=== PATIENT | male | born 1945 | race Caucasian/White ===

== ENCOUNTER 2021-05-18 13:11 | Outpatient (CLI) | payer MEDICARE, BC | END 2021-05-18 13:12 | disposition home or self-care (01) | LOC: TBSIIMAG 13:11 | PROVIDERS: ATTEND Urology | DX: C64.2 Malignant neoplasm of left kidney, except renal pelvis (principal); R97.20 Elevated prostate specific antigen [PSA] | CPT/HCPCS: 72197; 82565 ==

== ENCOUNTER 2021-05-20 12:34 | Outpatient (CLI) | payer MEDICARE, BC | END 2021-05-20 12:35 | disposition home or self-care (01) | LOC: TBSIIMAG 12:34 | PROVIDERS: ATTEND Urology | DX: R97.20 Elevated prostate specific antigen [PSA] (principal); K86.89 Other specified diseases of pancreas | CPT/HCPCS: 74183 ==

== ENCOUNTER 2023-07-22 16:15 | Inpatient (IN) | payer MEDICARE, BC ==
[~2023-07-22 16:15] MED LIST: Iopamidol-370 76% 500 ML MDV (1 ML CHARGE) ONE
[2023-07-22 16:59] LABS: #Eosinphils 0.1 thou/uL (0.0-0.7); #Monocytes 0.5 thou/uL (0.11-0.59); %Basophils 0.2 % (0.0-1.0); %Eosinophils 1.5 % (0.0-10.0); %Lymphocytes 14.8 % (21.0-51.0); %Monocytes 8.8 % (0.0-10.0); %Neutrophils 74.3 % (42.0-75.0); Hemoglobin 15.6 g/dL (14.0-18.0); Mean Corpuscular HGB CONC 35.5 g/dL (32.0-36.0); Mean Corpuscular Hemoglobin 32.8 pg (27.0-31.0); Mean Corpuscular Volume 92.6 fl (78.0-98.0); Mean Platelet Volume 10.8 fL (7.4-10.4); Platelet Count 148 10x3/uL (130-400); RBC Distribution Width 12.3 % (11.5-14.5); Red Blood Cell (RBC) Count 4.75 mill/uL (4.70-6.10); White Blood Cell (WBC) Count 5.4 10x3/uL (4.8-10.8)
[2023-07-22 17:16] LABS: PTT 30.6 sec (22.9-36.1)
[2023-07-22] MEDS ORDERED: Labetalol HCl 100 MG/20 ML VIAL ONE ×2 (17:31→19:11)
[2023-07-22 18:14] LABS: ALT (SGPT) 33 U/L (8-55); AST (SGOT) 31 U/L (5-34); Albumin 4.2 g/dL (3.4-4.8); Alkaline Phosphatase 135 U/L (40-110); Anion Gap 10 mmol/L (10-20); BUN (Urea Nitrogen) 18 mg/dL (8.4-25.7); Bilirubin, Total 0.7 mg/dL (0.2-1.2); Calc. Creatinine Clearance 0 mL/min (70-130); Calcium 9.3 mg/dL (7.8-10.44); Carbon Dioxide 30 mmol/L (23-31); Chloride 100 mmol/L (98-107); Estimated GFR 53; Globulin 2.8 g/dL (2.4-3.5); Glucose 124 mg/dL (83-110); Sodium 137 mmol/L (136-145)
[2023-07-22 18:15] LABS: Troponin I 0.126 ng/mL (< 0.028)
[2023-07-22] MEDS ORDERED: Potassium Chloride 20 MEQ TAB ONE (18:53)
[2023-07-22] MEDS ORDERED: Aspirin Chewable 81 MG TAB ONE (19:10)
[2023-07-22] MEDS ORDERED: hydrALAZINE 20 MG/ML VIAL SLOW IVP PRN (21:05)
[2023-07-22] MEDS ORDERED: Senokot S 8.6-50 MG TAB PO PRN (21:08)
[2023-07-22] MEDS ORDERED: Ondansetron ODT 4 MG TAB PO PRN (21:08)
[2023-07-22] MEDS ORDERED: Acetaminophen 325 MG TAB PO PRN (21:08)
[2023-07-22] MEDS ORDERED: Calcium Carbonate 500 MG ChewTAB PO PRN (21:08)
[2023-07-22] MEDS ORDERED: Electrolyte Replacement Protocol 1 EACH FS PRN (21:16)
[2023-07-22 23:44] LABS: Critical Call Chem Troponin I NUR.MB20 @2342; Troponin I 0.805 ng/mL (< 0.028)
[2023-07-23 00:41] VITALS: BMI 31.0
[2023-07-23 02:21] LABS: #Eosinphils 0.1 thou/uL (0.0-0.7); #Monocytes 0.6 thou/uL (0.11-0.59); #Neutrophils 2.6 thou/uL (1.40-6.50); %Basophils 0.2 % (0.0-1.0); %Eosinophils 2.3 % (0.0-10.0); %Lymphocytes 24.6 % (21.0-51.0); %Monocytes 13.3 % (0.0-10.0); %Neutrophils 59.4 % (42.0-75.0); Hematocrit 40.3 % (42.0-52.0); Hemoglobin 14.3 g/dL (14.0-18.0); Mean Corpuscular HGB CONC 35.5 g/dL (32.0-36.0); Mean Corpuscular Hemoglobin 32.9 pg (27.0-31.0); Mean Corpuscular Volume 92.9 fl (78.0-98.0); Mean Platelet Volume 10.3 fL (7.4-10.4); Platelet Count 132 10x3/uL (130-400); RBC Distribution Width 12.4 % (11.5-14.5); Red Blood Cell (RBC) Count 4.34 mill/uL (4.70-6.10); White Blood Cell (WBC) Count 4.4 10x3/uL (4.8-10.8)
[2023-07-23 03:18] LABS: Anion Gap 13 mmol/L (10-20); BUN (Urea Nitrogen) 17 mg/dL (8.4-25.7); Calc. Creatinine Clearance 67 mL/min (70-130); Calcium 8.5 mg/dL (7.8-10.44); Carbon Dioxide 26 mmol/L (23-31); Chloride 103 mmol/L (98-107); Estimated GFR 61; Glucose 113 mg/dL (83-110); Potassium 3.3 mmol/L (3.5-5.1); Sodium 139 mmol/L (136-145); Triglycerides 124 mg/dL (Less than 150)
[2023-07-23 03:19] LABS: Cholesterol 124 mg/dl (< 200 Desired)
[2023-07-23 03:20] LABS: HDL Cholesterol 31 mg/dL (>60 Neg Risk); LDL Cholesterol, Calculated 68 mg/dL
[2023-07-23 05:21] LABS: Critical Call Chem Troponin I RESULT DECREASING; Troponin I 0.634 ng/mL (< 0.028)
[2023-07-23] MEDS: Potassium Chloride 20 MEQ TAB PO SCH (09:22)
[2023-07-23] MEDS: Aspirin 81 mg Enteric Coated Tablet PO SCH (09:23)
[2023-07-23] MEDS: Losartan 25 MG TAB PO SCH (09:24)
[2023-07-23] MEDS: Famotidine 20 MG TAB PO SCH (09:24)
[2023-07-23] MEDS: Amlodipine 5 MG TAB PO SCH (09:24)
[2023-07-23] MEDS: Atorvastatin Calcium 40 MG TAB PO SCH (15:43)
[2023-07-24 05:44] LABS: #Eosinphils 0.1 thou/uL (0.0-0.7); #Monocytes 0.6 thou/uL (0.11-0.59); #Neutrophils 3.7 thou/uL (1.40-6.50); %Basophils 0.2 % (0.0-1.0); %Eosinophils 1.7 % (0.0-10.0); %Lymphocytes 17.7 % (21.0-51.0); %Monocytes 11.7 % (0.0-10.0); %Neutrophils 68.5 % (42.0-75.0); Hematocrit 41.7 % (42.0-52.0); Hemoglobin 14.6 g/dL (14.0-18.0); Mean Corpuscular Hemoglobin 32.5 pg (27.0-31.0); Mean Corpuscular Volume 92.9 fl (78.0-98.0); Mean Platelet Volume 10.7 fL (7.4-10.4); Platelet Count 135 10x3/uL (130-400); RBC Distribution Width 12.4 % (11.5-14.5); Red Blood Cell (RBC) Count 4.49 mill/uL (4.70-6.10); White Blood Cell (WBC) Count 5.4 10x3/uL (4.8-10.8)
[2023-07-24 06:04] LABS: Anion Gap 12 mmol/L (10-20); BUN (Urea Nitrogen) 14 mg/dL (8.4-25.7); Calc. Creatinine Clearance 59 mL/min (70-130); Calcium 8.6 mg/dL (7.8-10.44); Carbon Dioxide 28 mmol/L (23-31); Chloride 103 mmol/L (98-107); Estimated GFR 53; Glucose 108 mg/dL (83-110); Potassium 3.4 mmol/L (3.5-5.1); Sodium 140 mmol/L (136-145)
[2023-07-24] MEDS ORDERED: Non-Formulary Item 1 EACH (Zolpidem Tartrate [Ambien] 10 MG Tablet) PO PRN (08:34)
[2023-07-24] MEDS ORDERED: Zolpidem Tartrate 5 MG TAB PO PRN (08:44)
[2023-07-24] MEDS ORDERED: prednisoLONE 15 MG/5 ML UDCUP PO SCH (09:00)
[2023-07-24] MEDS ORDERED: Non-Formulary Item 1 EACH (Prednisolone Acetate/Pf [Prednisolone Acet 1% Eye Drop] 5 ML D OP SCH (09:00)
[2023-07-24] MEDS ORDERED: Levothyroxine Sodium 88 MCG TAB PO SCH (09:00)
[2023-07-24] MEDS ORDERED: Non-Formulary Item 1 EACH (Telmisartan/Hydrochlorothiazid [Micardis Hct] 80 MG/12.5 MG Ta PO SCH (09:00)
[2023-07-24] MEDS: Potassium Chloride 20 MEQ TAB PO SCH (09:38)
[2023-07-24] MEDS: Tamsulosin HCl 0.4 MG CAP PO SCH (09:46)
[2023-07-24] MEDS: Rosuvastatin 20 MG TAB PO SCH (09:47)
[2023-07-24] MEDS: prednisoLONE 15 MG/5 ML UDCUP PO SCH (09:47)
[2023-07-24] MEDS: CO Q-10 CAPSULE 100 MG PO SCH (09:47)
[2023-07-24 11:31] VITALS: BP 211/96; TEMP 97.7
[2023-07-24] MEDS: Losartan 25 MG TAB PO SCH (13:16)
[2023-07-24] MEDS: Hydrochlorothiazide 25 MG TAB PO SCH (13:16)
[2023-07-25] MEDS ORDERED: Levothyroxine Sodium 125 MCG TAB PO SCH (06:00)
[2023-07-25] MEDS ORDERED: Losartan 25 MG TAB PO SCH (09:00)
[2023-07-25] MEDS ORDERED: Hydrochlorothiazide 25 MG TAB PO SCH (09:00)
== END 2023-07-24 15:20 | disposition home or self-care (01) | DRG 65 ==
LOC: ERS 16:15 → ERHOLD 21:19 → 2SW 07-23 03:49
PROVIDERS: ADMIT Student in an Organized Health Care Education/Training Program; ATTEND Internal Medicine
DX: I63.512 Cerebral infarction due to unspecified occlusion or stenosis of left middle cerebral artery (principal); G81.91 Hemiplegia, unspecified affecting right dominant side; Z68.31 Body mass index [BMI] 31.0-31.9, adult; R53.1 Weakness; E78.5 Hyperlipidemia, unspecified; N18.9 Chronic kidney disease, unspecified; I12.9 Hypertensive chronic kidney disease with stage 1 through stage 4 chronic kidney disease, or unspecified chronic kidney disease; Z79.899 Other long term (current) drug therapy; I25.10 Atherosclerotic heart disease of native coronary artery without angina pectoris; Z98.890 Other specified postprocedural states; Z79.82 Long term (current) use of aspirin; E87.6 Hypokalemia; E66.9 Obesity, unspecified; I16.0 Hypertensive urgency
CPT/HCPCS: 36415; 70496; 70498; 70551; 71045; 80048; 80053; 80061; 84484; 85025; 85610; 85730; 93005; 93306; 93880; 96374; J7510; Q9967